=== PATIENT | female | born 1975 | race Caucasian/White ===

== ENCOUNTER 2019-12-23 11:48 | Emergency (ER) | payer SELFPAY ==
[2019-12-23 11:49] VITALS: BP 133/64; PULSE 80; RESP 16; TEMP 36.7; O2SAT 100; BMI 19.3
--- NOTE | 2019-12-23 11:52 | ED_ITS ---
Entered by Tari Salgado, acting as scribe for Marge Bear HPI - Chest Pain General: Chief Complaint: Chest Pain Stated Complaint: jaw pain Time Seen by Provider: 12/23/19 11:51 Source: patient Mode of arrival: ambulatory Limitations: no limitations History of Present Illness: HPI narrative: 44 yo Female presents to ED with complaint of jaw pain that radiates down into her chest. Pt states that her pain is sharp and she has nauseated. Pt's family states that the patient has been short of breath. Pt's family states that the patient had a stroke in October a nd was given TPA. Pt states that she woke up this way from a nap. Pt's family states that the patient fell asleep in the middle of a conversation. Pt woke up complaining of feeling like she was punched in the jaw. Pt's family states that the patient is taking astorvastatin and one of the side effects is jaw pain. Pt states that her vision is twitching. Pt's family states that the patient's last known normal was 10:45 am today. NIHSS=3 MD complaint: chest pain and other (jaw pain) Onset (ago): minute(s) Timing of current episode: constant and still present Prior episodes: Yes Onset: awoke with symptoms Pain location: other (jaw) Pain radiation: neck Pain scale (0-10): 9 Quality: sharp Relieving factors: nothing Exacerbating factors: nothing Associated symptoms: Reports dyspnea and nausea; Deny diaphoresis, fever(s), palpitations or syncope Treatment prior to arrival: none Review of Systems General: Reports: other (negative unless marked) Const: Denies: fever, chills, body aches, fatigue, malaise or diaphoresis Eyes: Denies: change in vision or blurry vision ENMT: Reports: other (jaw pain); Denies: throat pain, painful swallowing, hoarseness, ear pain, ear discharge, Change in hearing or nasal discharge Card: Reports: chest pain; Denies: palpitations, irregular heart rhythm, syncope, pre-syncope, shortness of breath on exertion or shortness of breath when lying down Resp: Reports: shortness of breath GI: Reports: nausea : Denies: flank pain, painful urination, urinary frequency, urinary urgency, decreased urine ouput, urinary incontinence or blood in urine Musc: Denies: neck pain, back pain, extremity pain, extremity swelling, joint pain, joint swelling, joint warmth or joint stiffness Skin/Breast: Denies: rash, skin tenderness or yellow skin Neuro: Denies: headache, numbness in extremities, weakness in extremities, changes in sensation, lack of coordination, difficulty walking, dizziness, vertigo or confusion Endo: Denies: excessive thirst, tired all the time, cold intolerance, excessive sweating, flushing or hot flashes Yvan/Lymph: Denies: easy bruising, easy bleeding, petechiae or enlarged lymph nodes All/Imm: Denies: hives, throat swelling, tongue swelling, facial swelling or acute wheezing PFSH ED PFSH: Statuses (acute, chronic, etc) shown below reflect problem list status as previously entered and may not be historically accurate Medical History Atrial fibrillation (Acute) CVA (cerebral vascular accident) (Acute) Migraine (Acute) Palpitation (Acute) Surgical History H/O: hysterectomy (Acute) History of appendectomy (Acute) History of hysterectomy (Acute) Hx laparoscopic cholecystectomy (Acute) Tubal ligation status (Acute) Tubal ligation status (Acute) Family History Grandmother Cancer Father Diabetes Stroke Mother Hypertension Stroke Other Dementia Hyperlipidemia Psychiatric illness Denies family history of CAD (coronary artery disease) Clotting disorder Chronic kidney disease (CKD) Anesthesia complication Bleeding disorder Family history of premature coronary artery disease Lung disease Social History Smoking and tobacco status: current every day smoker cigarettes Quit status (tobacco): considering quitting Second hand smoke exposure: No Smoking risk assessment/counseling performed?: No Alcohol intake: never Desire information about alcohol rehabilitation?: No Counseling given: No Desire information about substance/drug rehabilitation?: No Counseling given: No Adopted: No Caregiver/support person: No Lives independently: Yes Household members: family Housing: House Marital status: Single Number of children: 3 Number of grandchildren: 6 Highest education level completed: Some College, No Degree service: No Current occupational status: employed Current occupational exposures/hazards: No History of recent travel: No Current gender identity: Female Special jaziel needs: No Agree to transfusion: Yes Physical Exam Const: COMMON NORMALS: no apparent distress, oriented x3, no limitations, healthy appearing and well nourished EXAM LIMITATIONS: no altered mental status GENERAL APPEARANCE: cooperative, well kempt and well developed ORIENTATION/CONSCIOUSNESS: Yes awake HENMT: COMMON NORMALS: normocephalic, head/scalp atraumatic, hearing grossly normal bilaterally, external ears normal, EAC's normal, external nose normal and moist oral mucous membranes HEAD & SCALP: normal to inspection, normocephalic and atraumatic FACE & SINUS: normal facial exam and face symmetric NOSE: external nose normal and nares normal EXTERNAL EAR: Yes external ears normal EXTERNAL AUDITORY CANAL: EAC's normal MOUTH: oral and palatal mucosa normal and tongue normal Eye: COMMON NORMALS: PERRL, EOMs intact bilaterally, conjunctivae normal and no scleral icterus GENERAL EYE: normal appearance of both eyes and normal light reflex CONJUNCTIVA: Yes conjunctivae normal SCLERA: sclerae normal CORNEA: Yes corneas normal PUPIL: Yes PERRL DIRECT OPHTHALMOSCOPY: Yes normal light reflex Neck/C-Spine: COMMON NORMALS: full ROM, no lymphadenopathy, supple, no men ingeal signs and no JVD GENERAL: Yes normal visual inspection and Yes trachea midline CERVICAL SPINE: Yes cervical ROM normal Chest: COMMONS NORMALS: inspection of chest normal and palpation of chest normal Resp: COMMON NORMALS: normal respiratory effort, no retractions, no use of accessory muscles and clear to auscultation bilaterally EFFORT & INSPECTION: Yes able to speak in complete sentences AUSCULTATION: clear to auscultation bilaterally Cardio: COMMON NORMALS: no JVD, regular rate, regular rhythm, S1 normal heart sound, S2 normal heart sound, no gallops, no clicks, no murmurs, no rub and peripheral pulses 2+ throughout JUGULAR VENOUS DISTENTION: no JVD RATE: regular rate RHYTHM: regular rhythm HEART SOUNDS: S1 normal and S2 normal PERIPHERAL PULSES: pulses 2+ throughout, brachial pulses present, radial pulses present, ulnar pulses present, femoral pulses present, popliteal pulses present, posterior tibial pulses present, dorsalis pedis pulses present and other (Carotid pulses normal bilaterally.) GI: COMMON NORMALS: soft to palpation, non-tender, no hepatosplenomegaly and no masses INSPECTION: Yes normal to inspection PALPATION: Yes soft and Yes no hepatosplenomegaly : COMMON NORMALS: Yes no CVA tenderness BLADDER/KIDNEY EXAM: Yes no CVA tenderness Back/Pelvis: COMMON NORMALS: no CVA tenderness, thoracic and lumbar spine normal to inspection, no thoracic nor lumbar tenderness and thoraco-lumbar ROM normal Extremity: COMMON NORMALS: normal to inspection, full ROM, normal capillary refill, no joint enlargement, no clubbing, cyanosis or edema and no calf tenderness Neuro: COMMON NORMALS: oriented x3, CN's II-XII intact bilaterally, moves all extremities, no focal motor deficits and no sensory deficits noted MENINGEAL SIGNS: Yes no meningeal signs Psych: COMMON NORMALS: mental status grossly normal, thought process normal, cooperative, affect normal, speech normal and activity/motor behavior normal APPEARANCE: Yes well kempt SPEECH: Yes normal speech THOUGHT PROCESS: normal thought process Skin: COMMON NORMALS: no rashes or lesions noted, skin turgor normal, no jaundice, no petechiae and no mottling GENERAL SKIN EXAM: no rashes or lesions noted and turgor normal Course ED course: 1245 - The case was reviewed with Dr. Gonzalez, he does not believe this is an acute stroke. Please see his consult note. He states at this time the patient could be considered for EEG testing as there was a questionable syncopal episode at the beginning of this episode. He does not recommend a repeat MRI. I have discussed with the patient at this time the need for possible admission for EEG or cardiac rule out but she is refusing. After much discussion she does agree to allow me to ultrasound her neck to rule out carotid dissection as well as get a second EKG and troponin but she is refusing any further evaluation. On reexamination her neck and clavicle area she describes her pain are tender to touch. I see no skin rashes or lesions. She has pain with increased movement of her right arm. Vital Signs: Vital signs: Vital Signs Temperature 98.0 F 12/23/19 11:49 Pulse Rate 66 12/23/19 14:41 Respiratory Rate 18 12/23/19 14:41 Blood Pressure 114/58 12/23/19 14:41 Pulse Oximetry 98 12/23/19 14:41 MDM - Chest Pain MDM Narrative: Medical decision making narrative: Angi is a 44-year-old female who comes in with left-sided neck and jaw pain after awakening from a nap. Her last known well time was 1045. She complained of weakness in her arm and her leg. The patient had similar symptoms at the end of October,November 10 and was treated for a stroke. Per review of records that are available to me at this time is unclear whether this was truly a stroke or stroke mimic. I did discuss the case with the on-call neurologist for [facility] Dr. Gonzalez and he had records available to him that question whether this was a conversion disorder or a stroke mimic such as a migraine with hemiplegia. Ultimately the patient improved and was discharged from [facility] after she was transferred from here. This time the patient symptoms are gone except for only mild tenderness to the areas affected in her left neck and left clavicle. Ultrasound shows no sign of carotid dissection. I do not feel there to be an aortic dissection as the patient has a normal heart and mediastinum on chest x-ray, she has equal and strong pulses in her carotid arteries, brachial arteries, radial arteries, femoral arteries, popliteal arteries and dorsalis pedis/posterior tibial arteries. She does not describe her pain as ripping, tearing or migrating. Her pain is reproducible to palpation. The patient I do not believe this is a PE as she is low risk per Wells criteria and her d-dimer is negative. Negative d-dimer also supports this not being an aortic dissection. Patient has a heart score of 1. I have recommended that she stay for further testing of her heart but she refuses. Dr. Gonzalez had recommended staying for EEG monitoring but she does not want to do this either. The patient has been warned that the definitive cause for her pain is not been determined and by leaving she is at risk of or severe permanent disability but despite this she still refuses and wants to be discharged. I have informed her that the differential diagnosis of her symptoms is still long and further testing needs to be done but despite this concern and the possible consequences she still wants to leave and is requesting to be discharged. Lab Data: Labs: Lab Results 12/23/19 12/23/19 12/23/19 Range/Units 11:50 11:50 11:50 WBC 13.4 H (4.0-10.0) 10^3/ uL RBC 4.39 (4.1-5.3) 10^6/u L Hgb 13.8 (11.5-15.3) g/dL Hct 41.3 (37.0-47.0) % MCV 94.1 (81-99) fL MCH 31.4 (28.0-34.0) pg MCHC 33.4 (30.0-36.0) g/dL RDW 12.9 (12.1-15.1) % Plt Count 234 (130-400) 10^3/c mm MPV 9.6 (7.4-10.4) fL Neut % (Auto) 76.5 % Lymph % (Auto) 17.5 % [place] % (Auto) 4.6 % Eos % (Auto) 0.6 % Baso % (Auto) 0.4 % Neut # (Auto) 10.2 H (1.8-7.7) 10^3/u L Lymph # (Auto) 2.3 (0.8-4.8) 10^3/u L [place] # (Auto) 0.6 (0.2-0.9) 10^3/u L Eos # (Auto) 0.1 (0.0-0.8) 10^3/u L Baso # (Auto) 0.1 (0.0-0.1) 10^3/u L Nucleated RBC % (a uto) 0 % Nucleated RBCs # 0.0 /100WBC PT 13.80 H (10.5-13.3) SECO NDS INR 1.03 (0.8-1.2) APTT 33.4 (23.9-36.7) SECO NDS D-Dimer (0-0.59) ug/mIFE U Sodium (136-145) mmol/L Potassium (3.5-5.1) mmol/L Chloride (98-107) mmol/L Carbon Dioxide (22-29) mmol/L Anion Gap (5-19) BUN (6-20) mg/dL Creatinine (0.5-0.9) mg/dL GFR Calculation (90-130) mL/min Glucose (65-115) mg/dL POC Glucose (70-110) mg/dL Calcium (8.5-10.5) mg/dL Total Bilirubin (0.15-1.2) mg/dL AST (0-32) U/L ALT (0-33) U/L Alkaline Phosphata se (35-105) IU/L Troponin T Baselin e 6 (0-10) ng/mL Troponin T 120 Min [place] (0-10) ng/mL Delta Troponin T (0-10) ABS# Total Protein (6.6-8.7) g/dL Albumin (3.5-5.2) g/dL Globulin (1.3-4.6) g/dL HCG, Qual (Negative) Urine Color (Yellow) Urine Appearance (CLEAR) Urine pH (5-7) Ur Specific Gravit y (1.005-1.030) Urine Protein (Negative) Urine Glucose (UA) (Normal) Urine Ketones (Negative) Urine Occult Blood (Negative) Urine Nitrate (Negative) Urine Bilirubin (NEGATIVE) Urine Urobilinogen (Negative) mg/dL Ur Leukocyte Jesusita ase (Negative) Urine Opiates Scre en (Negative) ng/mL Ur Barbiturates Sc reen (Negative) ng/mL Ur Phencyclidine S crn (Negative) ng/mL Ur Amphetamines Sc reen (Negative) ng/mL U Benzodiazepines Scrn (Negative) ng/mL Urine Cocaine Scre en (Negative) ng/mL U Marijuana (THC) Screen (Negative) ng/mL Ethyl Alcohol (0-10) mg/dL 12/23/19 12/23/19 12/23/19 Range/Units 11:50 11:50 11:50 WBC (4.0-10.0) 10^3/ uL RBC (4.1-5.3) 10^6/u L Hgb (11.5-15.3) g/dL Hct (37.0-47.0) % MCV (81-99) fL MCH (28.0-34.0) pg MCHC (30.0-36.0) g/dL RDW (12.1-15.1) % Plt Count (130-400) 10^3/c mm MPV (7.4-10.4) fL Neut % (Auto) % Lymph % (Auto) % [place] % (Auto) % Eos % (Auto) % Baso % (Auto) % Neut # (Auto) (1.8-7.7) 10^3/u L Lymph # (Auto) (0.8-4.8) 10^3/u L [place] # (Auto) (0.2-0.9) 10^3/u L Eos # (Auto) (0.0-0.8) 10^3/u L Baso # (Auto) (0.0-0.1) 10^3/u L Nucleated RBC % (a uto) % Nucleated RBCs # /100WBC PT (10.5-13.3) SECO NDS INR (0.8-1.2) APTT (23.9-36.7) SECO NDS D-Dimer <= 0.27 (0-0.59) ug/mIFE U Sodium 137 (136-145) mmol/L Potassium 3.8 (3.5-5.1) mmol/L Chloride 104 (98-107) mmol/L Carbon Dioxide 20 L (22-29) mmol/L Anion Gap 16.8 (5-19) BUN 13 (6-20) mg/dL Creatinine 0.7 (0.5-0.9) mg/dL GFR Calculation 91.8 (90-130) mL/min Glucose 103 (65-115) mg/dL POC Glucose (70-110) mg/dL Calcium 10.0 (8.5-10.5) mg/dL Total Bilirubin 0.3 (0.15-1.2) mg/dL AST 9 (0-32) U/L ALT 17 (0-33) U/L Alkaline Phosphata se 65 (35-105) IU/L Troponin T Baselin e (0-10) ng/mL Troponin T 120 Min [place] (0-10) ng/mL Delta Troponin T (0-10) ABS# Total Protein 7.7 (6.6-8.7) g/dL Albumin 4.9 (3.5-5.2) g/dL Globulin 2.8 (1.3-4.6) g/dL HCG, Qual (Negative) Urine Color (Yellow) Urine Appearance (CLEAR) Urine pH (5-7) Ur Specific Gravit y (1.005-1.030) Urine Protein (Negative) Urine Glucose (UA) (Normal) Urine Ketones (Negative) Urine Occult Blood (Negative) Urine Nitrate (Negative) Urine Bilirubin (NEGATIVE) Urine Urobilinogen (Negative) mg/dL Ur Leukocyte Jesusita ase (Negative) Urine Opiates Scre en (Negative) ng/mL Ur Barbiturates Sc reen (Negative) ng/mL Ur Phencyclidine S crn (Negative) ng/mL Ur Amphetamines Sc reen (Negative) ng/mL U Benzodiazepines Scrn (Negative) ng/mL Urine Cocaine Scre en (Negative) ng/mL U Marijuana (THC) Screen (Negative) ng/mL Ethyl Alcohol < 10 (0-10) mg/dL 12/23/19 12/23/19 12/23/19 Range/Units 12:14 12:43 12:43 WBC (4.0-10.0) 10^3/ uL RBC (4.1-5.3) 10^6/u L Hgb (11.5-15.3) g/dL Hct (37.0-47.0) % MCV (81-99) fL MCH (28.0-34.0) pg MCHC (30.0-36.0) g/dL RDW (12.1-15.1) % Plt Count (130-400) 10^3/c mm MPV (7.4-10.4) fL Neut % (Auto) % Lymph % (Auto) % [place] % (Auto) % Eos % (Auto) % Baso % (Auto) % Neut # (Auto) (1.8-7.7) 10^3/u L Lymph # (Auto) (0.8-4.8) 10^3/u L [place] # (Auto) (0.2-0.9) 10^3/u L Eos # (Auto) (0.0-0.8) 10^3/u L Baso # (Auto) (0.0-0.1) 10^3/u L Nucleated RBC % (a uto) % Nucleated RBCs # /100WBC PT (10.5-13.3) SECO NDS INR (0.8-1.2) APTT (23.9-36.7) SECO NDS D-Dimer (0-0.59) ug/mIFE U Sodium (136-145) mmol/L Potassium (3.5-5.1) mmol/L Chloride (98-107) mmol/L Carbon Dioxide (22-29) mmol/L Anion Gap (5-19) BUN (6-20) mg/dL Creatinine (0.5-0.9) mg/dL GFR Calculation (90-130) mL/min Glucose (65-115) mg/dL POC Glucose 86 (70-110) mg/dL Calcium (8.5-10.5) mg/dL Total Bilirubin (0.15-1.2) mg/dL AST (0-32) U/L ALT (0-33) U/L Alkaline Phosphata se (35-105) IU/L Troponin T Baselin e (0-10) ng/mL Troponin T 120 Min [place] (0-10) ng/mL Delta Troponin T (0-10) ABS# Total Protein (6.6-8.7) g/dL Albumin (3.5-5.2) g/dL Globulin (1.3-4.6) g/dL HCG, Qual (Negative) Urine Color Yellow (Yellow) Urine Appearance Clear (CLEAR) Urine pH 7 (5-7) Ur Specific Gravit y 1.000 L (1.005-1.030) Urine Protein Neg (Negative) Urine Glucose (UA) Norm (Normal) Urine Ketones Negative (Negative) Urine Occult Blood Neg (Negative) Urine Nitrate Negative (Negative) Urine Bilirubin Neg (NEGATIVE) Urine Urobilinogen Norm (Negative) mg/dL Ur Leukocyte Jesusita ase Negative (Negative) Urine Opiates Scre en Negative (Negative) ng/mL Ur Barbiturates Sc reen Negative (Negative) ng/mL Ur Phencyclidine S crn Negative (Negative) ng/mL Ur Amphetamines Sc reen Negative (Negative) ng/mL U Benzodiazepines Scrn Negative (Negative) ng/mL Urine Cocaine Scre en Negative (Negative) ng/mL U Marijuana (THC) Screen Positive H (Negative) ng/mL Ethyl Alcohol (0-10) mg/dL 12/23/19 12/23/19 Range/Units 12:43 13:43 WBC (4.0-10.0) 10^3/ uL RBC (4.1-5.3) 10^6/u L Hgb (11.5-15.3) g/dL Hct (37.0-47.0) % MCV (81-99) fL MCH (28.0-34.0) pg MCHC (30.0-36.0) g/dL RDW (12.1-15.1) % Plt Count (130-400) 10^3/c mm MPV (7.4-10.4) fL Neut % (Auto) % Lymph % (Auto) % [place] % (Auto) % Eos % (Auto) % Baso % (Auto) % Neut # (Auto) (1.8-7.7) 10^3/u L Lymph # (Auto) (0.8-4.8) 10^3/u L [place] # (Auto) (0.2-0.9) 10^3/u L Eos # (Auto) (0.0-0.8) 10^3/u L Baso # (Auto) (0.0-0.1) 10^3/u L Nucleated RBC % (a uto) % Nucleated RBCs # /100WBC PT (10.5-13.3) SECO NDS INR (0.8-1.2) APTT (23.9-36.7) SECO NDS D-Dimer (0-0.59) ug/mIFE U Sodium (136-145) mmol/L Potassium (3.5-5.1) mmol/L Chloride (98-107) mmol/L Carbon Dioxide (22-29) mmol/L Anion Gap (5-19) BUN (6-20) mg/dL Creatinine (0.5-0.9) mg/dL GFR Calculation (90-130) mL/min Glucose (65-115) mg/dL POC Glucose (70-110) mg/dL Calcium (8.5-10.5) mg/dL Total Bilirubin (0.15-1.2) mg/dL AST (0-32) U/L ALT (0-33) U/L Alkaline Phosphata se (35-105) IU/L Troponin T Baselin e (0-10) ng/mL Troponin T 120 Min [place] 6.00 (0-10) ng/mL Delta Troponin T 0 (0-10) ABS# Total Protein (6.6-8.7) g/dL Albumin (3.5-5.2) g/dL Globulin (1.3-4.6) g/dL HCG, Qual Negative (Negative) Urine Color (Yellow) Urine Appearance (CLEAR) Urine pH (5-7) Ur Specific Gravit y (1.005-1.030) Urine Protein (Negative) Urine Glucose (UA) (Normal) Urine Ketones (Negative) Urine Occult Blood (Negative) Urine Nitrate (Negative) Urine Bilirubin (NEGATIVE) Urine Urobilinogen (Negative) mg/dL Ur Leukocyte Jesusita ase (Negative) Urine Opiates Scre en (Negative) ng/mL Ur Barbiturates Sc reen (Negative) ng/mL Ur Phencyclidine S crn (Negative) ng/mL Ur Amphetamines Sc reen (Negative) ng/mL U Benzodiazepines Scrn (Negative) ng/mL Urine Cocaine Scre en (Negative) ng/mL U Marijuana (THC) Screen (Negative) ng/mL Ethyl Alcohol (0-10) mg/dL Imaging Data^: CT Head: Radiologist's impression: [place] [address] CT Scan Report Signed Patient: Pawan Maxwell #: [id number] : 1975Acct#:[id number] Age/Sex: 44 / FADM Date: 12/23/19 Loc: ERRoom/Bed: Attending Dr: Ordering Provider/Ordering MD: Marge Baer DO Date of Service: 12/23/19 Procedure(s): CT head wo con* [id number] Accession Number(s): [id number] Report Number: [id number] WS: [id number] CT HEAD HISTORY: 44 years old Female with left leg weakness. Concern for stroke. COMPARISON: CT head without contrast 11/10/2019 TECHNIQUE: 2.[address] images of the head With 2-D reformats. DLP: 822.[address] scans at [facility] use at least one of these dose optimization techniques: automated exposure control; mA and/or kV adjustment per patient size (includes targeted exams where dose is matched to clinical indication); or iterative reconstruction. FINDINGS: No intracranial hemorrhage, midline shift, or other mass effect. Brain parenchymal attenuation, lim-white matter differentiation, ventricular configuration, and basilar cisterns are unremarkable. No intra-axial or intraventricular attenuation abnormality. Clear mastoid air cells and paranasal sinuses. No arterial calcifications. No hyperattenuation within the major intracranial arterial and venous structures to suggest acute thrombus. Globes and orbital soft tissues unremarkable. Nasopharyngeal soft tissues unremarkable. Calvarium intact. Scalp and remaining extra cranial spaces and soft tissues unremarkable. CT/CT head wo con* [id number] IMPRESSION: No intracranial hemorrhage or mass effect. No significant change from 11/10/2019. Dictated By:Chava Perera MD Signed By:Chava Perera MDSigned Date/Time:12/23/19 1224 DD/ 1215 US Vascular: Radiologist's impression: [employer] interpretation, ultrasound bilateral carotid Dopplers -no advanced dissection. No acute abnormalities. Please see full formal report. [address] [address] Ultrasound Report Signed Patient: Angi MaxwellUnit #: [id number] : 1975Acct#:[id number] Age/Sex: 44 / FADM Date: 12/23/19 [facility] Attending Dr: Ordering Provider/Ordering MD: Marge Bear DO Date of Service: 12/23/19 Procedure(s): CV carotid duplex BI* [id number] Accession Number(s): [id number] Report Number: [id number] Angi Maxwell Age: 44 Gender: F : 1975 Exam Date: 12/23/2019 13:34 Ordering Phys: Marge Bear DO Technologist: Kristopher Tabares [place]am [place] [facility] [place]ication: LT SIDE NECK PAIN ? DISCECTION Risk Factors: Smoker Previous Vascular Surgery: Right Brachial BP: / Left Brachial BP: / Right Left Velocity (cm/s) Spectral Plaque Velocity (cm/s) Spectral Plaque Syst/Diast Broadening Syst/Diast Broadening 86.00/ 16.50 Prox CCA 118.00/ 17.60 70.60/ 17.60 Mid CCA 94.80 / 23.20 78.30/ 20.90 Distal CCA 79.40 / 13.20 94.80/ 18.70 Prox ICA 109.20/ 13.20 83.80/ 24.30 Mid ICA 102.50/ 18.70 103.60/34.20 Distal ICA 80.50 / 19.80 104.70 ECA 94.80 1.21 ICA/CCA 0.93 Antegrade Vertebral Antegrade 71.70/ 19.80 cm/s 71.70/ 7.70 cm/s Tri Subclavian Tri 88.20 143.3 0 FINDINGS Bilateral cervical carotid and vertebral arteries are patent with antegrade flow. No apprecialbe cervical carotid artery atheromatous plaque. No significant ICA velocity or ICA/CCA ratios. CONCLUSIONS 1, No evidence of cervical ICA hemodynamically significant stenosis. 2. No significant atheromatous plaque Ky Perera MD (Electronically Signed) Final Date: 23 December 2019 14:36 S CXR: My impression: No acute cardiopulmonary findings, normal heart and mediastinum. EKG Data^: EKG 1: Attestation: I personally reviewed and interpreted this EKG as follows: EKG interpretation date: 12/23/19 EKG interpretation time: 11:49 Interpretation: Normal sinus rhythm at 72 beats a minute, normal axis, no blocks, normal QTC, nonspecific ST-T wave changes. EKG 2: Attestation: I personally reviewed and interpreted this EKG as follows: EKG interpretation date: 12/23/19 EKG interpretation time: 14:24 Interpretation: Normal sinus rhythm at 56 beats a minute, sinus arrhythmia, normal intervals, no blocks, normal axis, no acute ST-T wave changes. Critical Care Time Critical Care Time: Critical Care Time: Yes Total Critical Care Time: 30 Attestation: Critical care time consisted of completing stroke protocol, evaluating labs, reviewing CT myself as well as reviewing radiology findings. Critical care time also consisted of reviewing old charts, consultation and discussion of the case with the stroke neurologist Dr. Gonzalez as well as multiple re-evaluations of the patient. Discharge Plan Discharge Patient Disposition: Home, Self-Care Clinical Impression: Chest pain Qualifiers: Chest pain type: unspecified Qualified Code(s): R07.9 - Chest pain, unspecified Condition: Stable Prescriptions: No Action aspirin 325 mg tablet 325 mg PO DAILY Qty: 90 RF: 4 hydroxyzine HCl 25 mg tablet 25 mg PO BID PRN (Reason: itching) Qty: 45 RF: 0 verapamil 120 mg capsule,ext rel. pellets 24 hr 120 mg PO DAILY 30 Days Qty: 30 RF: 6 atorvastatin 20 mg Tablet 20 mg PO DAILY RF: 0 Discharge Orders: Discharge Order (Routine); Ordered 12/23/19 Ordered By: Marge Bear Referrals: Jenny Bond, PRODUCTION SOUND MIXER [Primary Care Provider] - 1-3 days Miladys Gonzalez MD [Physician] - 1-3 days Discharge Diet: Advance as tolerated Discharge Activity: Increase activity as tolerated Patient Instructions: Chest Pain (ED) Activity Restrictions/Additional Instructions: You're leaving AGAINST MEDICAL ADVICE and are at risk for or severe permanent disability by doing so. You are more than welcome to return at any time for recheck and for further evaluation and care suture change you change your mind. Be certain to follow-up with your primary care provider and with Dr. Pierre as soon as possible. If you change your mind you are more than welcome to return here to the ER at any time for recheck. Stand Alone Forms: Against Medical Advice Discharge Date/Time: 12/23/19 14:43 Coding Level of Care Code ED Candy Butcher for Chg Fwd Exam Problem Focused The documentation recorded by the Damian shanks Carmen, accurately reflects the service I personally performed and the decisions made by me, Marge Bear
--- NOTE | 2019-12-23 11:57 | ECG_ITS ---
Measurements Intervals [place] Rate: 72 P: 20 WI: 153 QRS: 33 QRSD: 81 T: 57 QT: 365 QTc: 401 SINUS RHYTHM INDETERMINATE AXIS POSSIBLE RIGHT VENTRICULAR CONDUCTION DELAY [RSR (QR) IN V1/V2] WARNING: DATA QUALITY MAY AFFECT INTERPRETATION Compared to ECG 11/10/2019 17:40:39 Indeterminate axis now present Myocardial infarct finding no longer present Electronically Signed On 12-23-2019 22:23:36 V BELT MOLD ASSEMBLER AND CURER by Miladys Gonzalez M.D. [id number]
--- NOTE | 2019-12-23 12:06 | CT_ITS ---
WS: [id number] CT HEAD HISTORY: 44 years old Female with left leg weakness. Concern for stroke. COMPARISON: CT head without contrast 11/10/2019 TECHNIQUE: 2.[address] images of the head With 2-D reformats. DLP: 822.[address] scans at [facility] use at least one of these dose optimization techniques: automat ed exposure control; mA and/or kV adjustment per patient size (includes targeted exams where dose is matched to clinical indication); or iterative reconstruction. FINDINGS: No intracranial hemorrhage, midline shift, or other mass effect. Brain parenchymal attenuation, lim- white matter differentiation, ventricular configuration, and basilar cisterns are unremarkable. No in tra-axial or intraventricular attenuation abnormality. Clear mastoid air cells and paranasal sinuses. No arterial calcifications. No hyperattenuation within the major intracranial arterial and venous st ructures to suggest acute thrombus. Globes and orbital soft tissues unremarkable. Nasopharyngeal soft tissues unremarkable. Calvarium intact. Scalp and remaining extra cranial spaces and soft tissues un remarkable. CT/CT head wo con* [id number] IMPRESSION: No intracranial hemorrhage or mass effect. No significant change from 9.
[2019-12-23 12:16] LABS: Glucose Point of Care 86 mg/dL (70-110)
[2019-12-23 12:17] LABS: Basophils # 0.1 10^3/uL (0.0-0.1); Basophils % 0.4 %; Eosinophils # 0.1 10^3/uL (0.0-0.8); Eosinophils % 0.6 %; Hematocrit 41.3 % (37.0-47.0); Hemoglobin 13.8 g/dL (11.5-15.3); Lymphocytes # 2.3 10^3/uL (0.8-4.8); Lymphocytes % 17.5 %; Mean Corpuscular HGB Conc 33.4 g/dL (30.0-36.0); Mean Corpuscular Hemoglobin 31.4 pg (28.0-34.0); Mean Corpuscular Volume 94.1 fL (81-99); Mean Platelet Volume 9.6 fL (7.4-10.4); Monocytes # 0.6 10^3/uL (0.2-0.9); Monocytes % 4.6 %; Neutrophils # 10.2 10^3/uL (1.8-7.7); Neutrophils % 76.5 %; Nucleated Red Blood Cells % 0 %; Platelet Count 234 10^3/cmm (130-400); Red Blood Count 4.39 10^6/uL (4.1-5.3); Red Cell Distribution Width 12.9 % (12.1-15.1); White Blood Count 13.4 10^3/uL (4.0-10.0)
[2019-12-23 12:22] LABS: INR 1.03 (0.8-1.2)
[2019-12-23 12:23] LABS: Partial Thromboplastin Time 33.4 SECONDS (23.9-36.7)
[2019-12-23 12:31] LABS: Alanine Aminotransferase 17 U/L (0-33); Albumin Level 4.9 g/dL (3.5-5.2); Alkaline Phosphatase 65 IU/L (35-105); Anion Gap 16.8 (5-19); Aspartate Amino Transferase 9 U/L (0-32); Blood Urea Nitrogen 13 mg/dL (6-20); Carbon Dioxide 20 mmol/L (22-29); Chloride 104 mmol/L (98-107); Globulin 2.8 g/dL (1.3-4.6); Glomerular Filtration Rate 91.8 mL/min (90-130); Glucose 103 mg/dL (65-115); Potassium 3.8 mmol/L (3.5-5.1); Sodium 137 mmol/L (136-145); Total Bilirubin 0.3 mg/dL (0.15-1.2); Total Protein 7.7 g/dL (6.6-8.7)
[2019-12-23 12:32] LABS: Troponin(5th) Baseline 6 ng/mL (0-10)
--- NOTE | 2019-12-23 12:48 | USCV_ITS ---
Angi Maxwell Age: 44 Gender: F : 1975 Exam Date: 12/23/2019 13:34 Ordering Phys: Marge Bear DO Technologist: Kristopher Tabares Exam Location: [facility] Indication: LT SIDE NECK PAIN ? DISCECTION Risk Factors: Smoker Previous Vascular Surgery: Right Brachial BP: / Left Brachial BP: / Right Left Velocity (cm/s) Spectral Plaque Velocity (cm/s) Spectral Plaque Syst/Diast Broadening Syst/Diast Broadening 86.00/ 16.50 Prox CCA 118.00/ 17.60 70.60/ 17.60 Mid CCA 94.80 / 23.20 78.30/ 20.90 Distal CCA 79.40 / 13.20 94.80/ 18.70 Prox ICA 109.20/ 13.20 83.80/ 24.30 Mid ICA 102.50/ 18.70 103.60/34.20 Distal ICA 80.50 / 19.80 104.70 ECA 94.80 1.21 ICA/CCA 0.93 Antegrade Vertebral Antegrade 71.70/ 19.80 cm/s 71.70/ 7.70 cm/s Tri Subclavian Tri 88.20 143.3 0 FINDINGS Bilateral cervical carotid and vertebral arteries are patent with antegrade flow. No apprecialbe cervical carotid artery atheromatous plaque. No significant ICA velocity or ICA/CCA ratios. CONCLUSIONS 1, No evidence of cervical ICA hemodynamically significant stenosis. 2. No significant atheromatous plaque Ky Perera MD (Electronically Signed) Final Date: 23 December 2019 14:36 S
[2019-12-23 12:54] LABS: Add Urine Microscopic? NO
[2019-12-23 12:58] LABS: Bilirubin Urine Neg (NEGATIVE); Blood Urine Neg (Negative); Glucose Urine UA Norm (Normal); Ketones Urine Negative (Negative); Leukocyte Esterase Urine Negative (Negative); Nitrate Urine Negative (Negative); Protein Urine Neg (Negative); Urine Appearance Clear (CLEAR); Urine Color Yellow (Yellow); Urobilinogen Urine Norm (Negative); pH Urine 7 (5-7)
[2019-12-23 13:06] LABS: D Dimer <= 0.27 ug/mIFEU (0-0.59)
[2019-12-23 13:15] VITALS: BP 106/51; PULSE 85; RESP 17; O2SAT 97
[2019-12-23 13:17] LABS: Amphetamines Screen Urine Negative (Negative); Barbiturates Screen Urine Negative (Negative); Benzodiazepines Screen Urine Negative (Negative); Cocaine Screen Urine Negative (Negative); Opiate Screen Urine Negative (Negative); PCP Screen Urine Negative (Negative); THC Screen Urine Positive (Negative)
[2019-12-23 13:34] LABS: Alcohol Level < 10 mg/dL (0-10)
[2019-12-23 13:36] LABS: HCG Qualitative Urine. Negative (Negative)
[2019-12-23 13:43] VITALS: RESP 17; O2SAT 98
[2019-12-23] MEDS: morphine 4 mg/mL SDV 1 mL IVP (13:43)
[2019-12-23] MEDS: ondansetron 2 mg/ML SDV 2 mL 4 MG IVP (13:43)
--- NOTE | 2019-12-23 13:57 | ECG_ITS ---
Measurements Intervals [place] Rate: 56 P: 28 SD: 155 QRS: 47 QRSD: 87 T: 44 QT: 410 QTc: 398 SINUS BRADYCARDIA WITH MARKED SINUS ARRHYTHMIA INDETERMINATE AXIS POSSIBLE RIGHT VENTRICULAR CONDUCTION DELAY [RSR (QR) IN V1/V2] Compared to ECG 11/10/2019 17:40:39 Indeterminate axis now present Sinus rhythm no longer present Myocardial infarct finding no longer present Electronically Signed On 12-23-2019 22:25:44 WINDOW DRESSER by Miladys Gonzalez M.D. [id number]
[2019-12-23 14:16] LABS: Troponin 5 2HR Delta 0 ABS# (0-10)
--- NOTE | 2019-12-23 14:34 | XR_ITS ---
WS: [id number] ONE VIEW CHEST HISTORY: 44 years old Female with cough AP upright chest comparison 11/10/2019 FINDINGS: Interval peripheral opacity in the right upper lobe. No pneumothorax, pleural effusion, or other par enchymal opacity. Heart size and pulmonary vascular markings unremarkable. No subdiaphragmatic free a ir. No fracture seen. XR/XR chest 1V portable [id number] IMPRESSION: Interval right upper lobe peripheral focal opacity may represent pneumonia, inc luding atypical pneumonia, such as tuberculosis. Clinical correlation needed. R ecommend short-term follow-up PA and lateral chest in 4-6 weeks, or sooner if c linically indicated.
[2019-12-23 14:41] VITALS: BP 114/58; PULSE 66; RESP 18; O2SAT 98
--- NOTE | 2019-12-25 13:44 | DCPLANNER ---
renewable energy division manager had message to schedule a follow up appointment for patient with [facility]. renewable energy division manager called [facility], spoke with Miguelina, a follow up appointment was scheduled for Tuesday, December 26, 2019 1:00 with Tanja Dominguez. Clinic will call patient with appointment information.
--- NOTE | 2020-01-04 15:18 | DCPLANNER ---
Patient did attend appointment scheduled for 12.26.19 with [facility].
== END 2019-12-23 14:43 | disposition home or self-care (01) ==
PROVIDERS: Emergency Provider Emergency Medicine; Family Provider Nurse Practitioner Family; PCP Nurse Practitioner Family
DX: R07.9 Chest pain, unspecified (principal); Z79.82 Long term (current) use of aspirin; F17.210 Nicotine dependence, cigarettes, uncomplicated; I48.91 Unspecified atrial fibrillation; Z86.73 Personal history of transient ischemic attack (TIA), and cerebral infarction without residual deficits
CPT/HCPCS: 36415; 36416; 70450; 71045; 80053; 80307; 81003; 81025; 82962; 84484; 85025; 85378; 85610; 85730; 93005; 93880; 96374; 96375; 99283; 99285; J2270; J2405

== ENCOUNTER 2020-04-11 11:52 | Emergency (ER) | payer SELFPAY ==
[2020-04-11 11:59] VITALS: PULSE 101; RESP 20; O2SAT 100; BMI 19.5
--- NOTE | 2020-04-11 12:01 | CT_ITS ---
WS: [id number] CT HEAD NONCONTRAST HISTORY: Symptoms of Acute Stroke TECHNIQUE: Contiguous axial imaging performed through the brain in 2.5 mm imaging. Bone and soft tiss ue windows. Sagittal and coronal reformats reviewed. All CT scans at [facility] use at ast one of these dose optimization techniques: automated exposure control; mA and/or kV adjustment pe r patient size (includes targeted exams where dose is matched to clinical indication); or iterative r econstruction. DLP: 756.41 mGy.cm COMPARISON: 12/23/2019 No acute intracranial hemorrhage, midline shift or mass effect. No atrophy or prior infarcts or herniation. Ventricles: Normal size with no hydrocephalus. No inferior displacement of the cerebellar tonsils. No significant atherosclerosis of the intracrania l carotid arteries. Paranasal sinuses: As visualized are clear. Mastoid air cells: Well pneumatized. Calvarium and scalp: Skull is intact with no soft tissue edema or swelling. Notified Rosemary Devlin MD at 04/11/2020 12:[address]/CT head wo con* [id number] IMPRESSION: 1. Negative noncontrast CT head. 2. No intracranial hemorrhage. Stable since 12/23/2019.
--- NOTE | 2020-04-11 12:01 | ECG_ITS ---
Measurements Intervals [place] Rate: 64 P: 29 RI: 180 QRS: 66 QRSD: 81 T: 62 QT: 370 QTc: 383 SINUS RHYTHM WITH MARKED SINUS ARRHYTHMIA POSSIBLE RIGHT VENTRICULAR CONDUCTION DELAY [RSR (QR) IN V1/V2] SEPTAL MYOCARDIAL INFARCTION , OF INDETERMINATE AGE [40+ ms Q WAVE IN V1/V2] Compared to ECG 12/23/2019 14:24:33 Myocardial infarct finding now present Sinus bradycardia no longer present Indeterminate axis no longer present Electronically Signed On 04-11-2020 18:55:23 CDT by Miladys Gonzalez M.D. [id number]
--- NOTE | 2020-04-11 12:07 | W.ED.NEUROSD ---
HPI - Neuro Symptoms/Deficit General: Chief Complaint: Neuro Symptoms/Deficit Stated Complaint: STATES SHE IS HAVING A STROKE Time Seen by Provider: 04/11/20 11:58 Source: patient Mode of arrival: ambulatory Limitations: altered mental status History of Present Illness: HPI Narrative: 44-year-old female that seen a failure states 15 minutes ago lost consciousness and was unable to move or talk. Patient had a history of a CVA that required TPA in October. Patient currently will follow some commands and squeeze my finger with her right hand. She is not able to speak to me. She shakes her head no to chest pain or headache. Onset (ago): minute(s) Location: speech History of same: Yes Severity: moderate Relieving factors: none Review of Systems General: Reports: ROS unobtainable due to medical condition and ROS unobtainable due to mental status PFS ED PFSH: Medical History (Updated 04/11/20 @ 13:32 by Rosemary Devlin MD) Anxiety Atrial fibrillation Chest pain CVA (cerebral vascular accident) Establishing care with new doctor, encounter for Migraine Palpitation Surgical History H/O: hysterectomy History of appendectomy History of hysterectomy Hx laparoscopic cholecystectomy Tubal ligation status Tubal ligation status Family History Grandmother Cancer Father Diabetes Stroke Mother Hypertension Stroke Other Dementia Hyperlipidemia Psychiatric illness Denies family history of CAD (coronary artery disease) Clotting disorder Chronic kidney disease (CKD) Anesthesia complication Bleeding disorder Family history of premature coronary artery disease Lung disease Social History Smoking and tobacco status: unknown if ever smoked Quit status (tobacco): considering quitting Second hand smoke exposure: No Smoking risk assessment/counseling performed?: No Alcohol intake: never Desire information about alcohol rehabilitation?: No Counseling given: No Desire information about substance/drug rehabilitation?: No Counseling given: No Adopted: No Caregiver/support person: No Lives independently: Yes Household members: family Housing: House Marital status: Single Number of children: 3 Number of grandchildren: 6 Highest education level completed: Some College, No Degree service: No Current occupational status: employed Current occupational exposures/hazards: No History of recent travel: No Current gender identity: Female Special jaziel needs: No Agree to transfusion: Yes Physical Exam Const: COMMON NORMALS: alert; negative for patient oriented x3 EXAM LIMITATIONS: altered mental status HENMT: COMMON NORMALS: normocephalic and atraumatic HEAD & SCALP: normocephalic and atraumatic Eye: COMMON NORMALS: Equal, round and reactive pupils present and EOMs intact bilaterally PUPIL: Yes Equal, round and reactive pupils present Neck/C-Spine: COMMON NORMALS: full ROM and supple Chest: COMMONS NORMALS: normal inspection of the chest and normal palpation of entire chest wall Resp: COMMON NORMALS: normal respiratory effort, No retractions, No use of accessory muscles and clear to auscultation bilaterally AUSCULTATION: clear to auscultation bilaterally Cardio: COMMON NORMALS: regular rate, regular rhythm and No murmurs present (Cardio) RATE: regular rate RHYTHM: regular rhythm GI: COMMON NORMALS: Normal to inspection, nondistended, normoactive bowel sounds present, Soft to palpation, non-tender and no masses PALPATION: Yes Soft to palpation Extremity: COMMON NORMALS: normal to inspection and full ROM Neuro: COMMON NORMALS: negative for patient oriented x3, negative for moves all extremities and negative for no focal motor deficits SENSORIUM/ORIENTATION: Yes alert Psych: COMMON NORMALS: negative for mental status grossly normal Skin: COMMON NORMALS: no rashes or lesions noted and no wounds GENERAL SKIN EXAM: no rashes or lesions noted Course Vital Signs: Vital signs: Vital Signs Pulse Rate 101 H 04/11/20 11:59 Respiratory Rate 20 H 04/11/20 11:59 Pulse Oximetry 100 04/11/20 11:59 MDM - Neuro Symptoms/Deficit MDM Narrative: Medical decision making narrative: 1233 patient evaluated by neurologist and patient symptoms are resolving and she is not a TPA candidate. She has no focal deficits that she has bilateral weakness. I went and spoke to her and she is able to answer all questions down and speak. She is regaining strength. She now complains of a headache at this time. Patient presents with altered mental status that is resolved. She is requesting discharge I feel she is stable for discharge. She is to follow-up with neurology in [place] as scheduled. CT here showed no signs of acute stroke and lab work is normal. She is to return if worsening. Lab Data: Labs: Lab Results 04/11/20 04/11/20 04/11/20 Range/Units 12:12 12:12 12:12 WBC 11.7 H (4.0-10.0) 10^3/ uL RBC 4.56 (4.1-5.3) 10^6/u L Hgb 14.5 (11.5-15.3) g/dL Hct 44.2 (37.0-47.0) % MCV 96.9 (81-99) fL MCH 31.8 (28.0-34.0) pg MCHC 32.8 (30.0-36.0) g/dL RDW 13.3 (12.1-15.1) % Plt Count 230 (130-400) 10^3/c mm MPV 9.4 (7.4-10.4) fL Neut % (Auto) 68.1 % Lymph % (Auto) 25.1 % [place] % (Auto) 5.1 % Eos % (Auto) 0.9 % Baso % (Auto) 0.5 % Neut # (Auto) 8.0 H (1.8-7.7) 10^3/u L Lymph # (Auto) 2.9 (0.8-4.8) 10^3/u L [place] # (Auto) 0.6 (0.2-0.9) 10^3/u L Eos # (Auto) 0.1 (0.0-0.8) 10^3/u L Baso # (Auto) 0.1 (0.0-0.1) 10^3/u L Nucleated RBC % (a uto) 0 % Nucleated RBCs # 0.0 /100WBC PT 13.50 H (10.5-13.3) SECO NDS INR 1.00 (0.8-1.2) APTT 30.3 (23.9-36.7) SECO NDS Sodium 137 (136-145) mmol/L Potassium 3.8 (3.5-5.1) mmol/L Chloride 105 (98-107) mmol/L Carbon Dioxide 17 L (22-29) mmol/L Anion Gap 18.8 (5-19) BUN 7 (6-20) mg/dL Creatinine 0.7 (0.5-0.9) mg/dL GFR Calculation 91.8 (90-130) mL/min Glucose 77 (65-115) mg/dL Calculated Osmolal ity 279 L (285-295) mOsm/k g Calcium 10.5 (8.5-10.5) mg/dL Total Bilirubin 0.4 (0.15-1.2) mg/dL AST 9 (0-32) U/L ALT 16 (0-33) U/L Alkaline Phosphata se 55 (35-105) IU/L Total Protein 7.3 (6.6-8.7) g/dL Albumin 4.8 (3.5-5.2) g/dL Globulin 2.5 (1.3-4.6) g/dL Imaging Data^: CT Head: Radiologist's impression: [address] [address] [address] Scan Report Signed Patient: Angi Maxwell Unit #: [id number] : 1975 Age/Sex: 44 / F ADM Date: 04/11/20 Loc: ER Room/Bed: Attending Dr: Ordering Provider/Ordering MD: Rosemary Devlin MD Date of Service: 04/11/20 Procedure(s): CT head wo con* [id number] Accession Number(s): [id number] Report Number: [id number] WS: [id number] CT HEAD NONCONTRAST HISTORY: Symptoms of Acute Stroke TECHNIQUE: Contiguous axial imaging performed through the brain in 2.5 mm imaging. Bone and soft tissue windows. Sagittal and coronal reformats reviewed. All CT scans at [facility] use at least one of these dose optimization techniques: automated exposure control; mA and/or kV adjustment per patient size (includes targeted exams where dose is matched to clinical indication); or iterative reconstruction. DLP: 756.41 mGy.cm COMPARISON: 12/23/2019 No acute intracranial hemorrhage, midline shift or mass effect. No atrophy or prior infarcts or herniation. Ventricles: Normal size with no hydrocephalus. No inferior displacement of the cerebellar tonsils. No significant atherosclerosis of the intracranial carotid arteries. Paranasal sinuses: As visualized are clear. Mastoid air cells: Well pneumatized. Calvarium and scalp: Skull is intact with no soft tissue edema or swelling. Notified Rosemary Devlin MD at 04/11/2020 12:[address]/CT head wo con* [id number] IMPRESSION: 1. Negative noncontrast CT head. 2. No intracranial hemorrhage. Stable since 12/23/2019. Discharge Plan Discharge Patient Disposition: Home, Self-Care Clinical Impression: Altered mental status Qualifiers: Altered mental status type: unspecified Qualified Code(s): R41.82 - Altered mental status, unspecified Condition: Stable Prescriptions: No Action multivitamin Tablet 1 tab PO DAILY RF: 0 vitamin B complex Tablet 1 tab PO DAILY RF: 0 hydroxyzine HCl 25 mg tablet 25 mg PO BID PRN (Reason: itching) Qty: 45 RF: 0 verapamil 120 mg capsule,ext rel. pellets 24 hr 120 mg PO DAILY 30 Days Qty: 30 RF: 6 aspirin [Adult Low Dose Aspirin] 81 mg tablet,delayed release (DR/EC) 81 mg PO DAILY 30 Days Qty: 30 RF: 12 clopidogrel [Plavix] 75 mg tablet 75 mg PO DAILY 30 Days Qty: 30 RF: 12 atorvastatin 20 mg Tablet 20 mg PO DAILY RF: 0 Discharge Orders: Discharge Order (Routine); Ordered 04/11/20 Ordered By: Rosemary Devlin Referrals: SHANICE Bond FNP [Family Provider] - 1-3 days Brandy Beal FNP [Primary Care Provider] - Discharge Diet: Advance as tolerated Discharge Activity: Resume usual activity Patient Instructions: Altered Mental Status (ED) Coding Level of Care Code ED Central Office Maintainer for Trueg Fwd Exam Comprehensive
[2020-04-11 12:19] LABS: Basophils # 0.1 10^3/uL (0.0-0.1); Basophils % 0.5 %; Eosinophils # 0.1 10^3/uL (0.0-0.8); Eosinophils % 0.9 %; Hematocrit 44.2 % (37.0-47.0); Hemoglobin 14.5 g/dL (11.5-15.3); Lymphocytes # 2.9 10^3/uL (0.8-4.8); Lymphocytes % 25.1 %; Mean Corpuscular HGB Conc 32.8 g/dL (30.0-36.0); Mean Corpuscular Hemoglobin 31.8 pg (28.0-34.0); Mean Corpuscular Volume 96.9 fL (81-99); Mean Platelet Volume 9.4 fL (7.4-10.4); Monocytes # 0.6 10^3/uL (0.2-0.9); Monocytes % 5.1 %; Neutrophils % 68.1 %; Nucleated Red Blood Cells % 0 %; Platelet Count 230 10^3/cmm (130-400); Red Blood Count 4.56 10^6/uL (4.1-5.3); Red Cell Distribution Width 13.3 % (12.1-15.1); White Blood Count 11.7 10^3/uL (4.0-10.0)
[2020-04-11 12:30] LABS: Partial Thromboplastin Time 30.3 SECONDS (23.9-36.7)
[2020-04-11 12:34] LABS: Alanine Aminotransferase 16 U/L (0-33); Albumin Level 4.8 g/dL (3.5-5.2); Alkaline Phosphatase 55 IU/L (35-105); Anion Gap 18.8 (5-19); Aspartate Amino Transferase 9 U/L (0-32); Blood Urea Nitrogen 7 mg/dL (6-20); Calcium 10.5 mg/dL (8.5-10.5); Carbon Dioxide 17 mmol/L (22-29); Chloride 105 mmol/L (98-107); Globulin 2.5 g/dL (1.3-4.6); Glomerular Filtration Rate 91.8 mL/min (90-130); Glucose 77 mg/dL (65-115); Osmolality Calculated 279 mOsm/kg (285-295); Potassium 3.8 mmol/L (3.5-5.1); Sodium 137 mmol/L (136-145); Total Bilirubin 0.4 mg/dL (0.15-1.2); Total Protein 7.3 g/dL (6.6-8.7)
[2020-04-11] MEDS: ketorolac 30 mg/mL INJ IVP (13:03)
[2020-04-11 13:59] VITALS: BP 99/55; PULSE 70; RESP 17; O2SAT 98
[2020-04-11 15:27] LABS: Glucose Point of Care 94 mg/dL (70-110)
== END 2020-04-11 14:01 | disposition home or self-care (01) ==
PROVIDERS: Emergency Provider Emergency Medicine; PCP Nurse Practitioner
DX: R41.82 Altered mental status, unspecified (principal); Z79.02 Long term (current) use of antithrombotics/antiplatelets; Z79.82 Long term (current) use of aspirin; I48.91 Unspecified atrial fibrillation; Z86.73 Personal history of transient ischemic attack (TIA), and cerebral infarction without residual deficits
CPT/HCPCS: 12345; 36416; 70450; 80053; 82962; 85025; 85610; 85730; 93005; 96374; 96375; 99282; 99284; J1885

== ENCOUNTER → 2021-08-12 13:35 | Outpatient (BNVA) | payer OTHER, SELFPAY | PROVIDERS: PCP Nurse Practitioner; Visit Provider Nurse Practitioner Family | DX: Z20.822 Contact with and (suspected) exposure to COVID-19 (principal); J06.9 Acute upper respiratory infection, unspecified | CPT/HCPCS: 87635 ==

== ENCOUNTER → 2021-11-16 14:33 | Outpatient (BNVA) | payer OTHER, SELFPAY | PROVIDERS: PCP Nurse Practitioner; Visit Provider Nurse Practitioner Family | DX: Z20.822 Contact with and (suspected) exposure to COVID-19 (principal); J02.9 Acute pharyngitis, unspecified | CPT/HCPCS: 87071; 87635; 87880 ==

== ENCOUNTER → 2021-12-09 11:18 | Outpatient (BNVA) | payer OTHER, SELFPAY | PROVIDERS: PCP Nurse Practitioner; Visit Provider Nurse Practitioner Family | DX: Z20.822 Contact with and (suspected) exposure to COVID-19 (principal) | CPT/HCPCS: 87635 ==

== ENCOUNTER 2022-11-26 08:22 | Outpatient (CLI) | payer OTHER, SELFPAY ==
--- NOTE | 2022-11-26 08:42 | MM_ITS ---
WS: [id number] DIAGNOSTIC BILATERAL DIGITAL BREAST TOMOSYNTHESIS MAMMOGRAPHY WITH CAD LEFT breast ultrasound, limited HISTORY: LT BREAST MASS COMPARISON: 06/13/2019 and 05/10/2018 TECHNIQUE: Bilateral craniocaudad, mediolateral oblique, and mediolateral views are submitted with to mosynthesis and SM. Spot compression LEFT CC and MLO. Computer aided detection utilized. Breast composition: The breasts are heterogeneously dense, which may obscure small masses. Partially obscured lobulated mass in the upper-outer quadrant LEFT breast posteriorly measures at [address] 12 x 6 mm. This corresponds to the palpable abnormality. No additional abnormalities. LEFT breast ultrasound, limited. Dumbbell shaped hypoechoic mass with mild increased vascularity in the LEFT breast at 2:00, 5 cm from the nipple. Mass measures 1.2 x 0.7 x 0.8 cm. MM/[place] [id number] IMPRESSION: BI-RADS: 4-Suspicious Finding-Biopsy Should Be Considered FOLLOW UP: Biopsy Recommended Ultrasound-guided biopsy recommended mass upper outer quadrant LEFT breast onesimo esponding to the palpable abnormality. Notified [facility] at 11/26/2022 10:40 AM.
== END 2022-11-26 08:23 | disposition home or self-care (01) ==
DX: N63.21 Unspecified lump in the left breast, upper outer quadrant (principal)
CPT/HCPCS: 76642; 77062; G0279

== ENCOUNTER 2022-12-23 08:10 | Outpatient (CLI) | payer MEDICAID, SELFPAY ==
--- NOTE | 2022-12-23 | US_ITS ---
WS: [id number] ULTRASOUND-GUIDED LEFT BREAST BIOPSY HISTORY: Mass at 2:00. COMPARISON: None. Procedure, risks and complications are explained to the patient. Medications are reviewed. Consent is obtained. The mass in the LEFT breast is localized with ultrasound. Mass localizes to 2:00, 5 cm from the nippl e. Skin is cleansed with ChloraPrep and anesthetized with 1% buffered lidocaine. Small dermatome is m faustino. Under sterile conditions mass is biopsied with a 14-gauge Achieve needle. Multiple core biopsies are performed. Material placed in formalin and sent to pathology for review. No complications encoun tered. Breast tissue marker (Astrapi ultrasound enhanced ribbon): None. Patient left the radiology suite with no complications. Patient is instructed to return to [facility] or [facility] with any concerns. US/[place] [id number] IMPRESSION: 1. Uncomplicated core needle biopsy LEFT breast mass at 2:00. PATHOLOGY: Fibroadenoma. No malignancy. RECOMMENDATION: Return to annual screening mammography. Screening mammography J anuary 2023.
== END 2022-12-23 08:11 | disposition home or self-care (01) ==
PROVIDERS: Visit Provider Family Medicine
DX: N63.25 Unspecified lump in the left breast, overlapping quadrants (principal); D24.2 Benign neoplasm of left breast
CPT/HCPCS: 19083; 88305

== ENCOUNTER 2023-12-09 09:01 | Outpatient (CLI) | payer OTHER, SELFPAY ==
--- NOTE | 2023-12-09 09:02 | MM_ITS ---
WS: [id number] BILATERAL SCREENING DIGITAL TOMOSYNTHESIS MAMMOGRAM WITH CAD HISTORY: SCREENING COMPARISON: 11/26/2022 and 06/13/2019 Bilateral CC and MLO views with tomosynthesis and synthetic mammography submitted. Computer aided det ection analyzed. Breast composition: The breasts are heterogeneously dense, which may obscure small masses. No suspici ous masses, microcalcifications or architectural distortion. Previously biopsied mass containing a bi opsy clip is noted in the upper outer quadrant of the RIGHT breast measures 11 mm and unchanged. No n ew suspicious masses or calcifications. IMPRESSION: MM/[place] [id number] BI-RADS: 2-Benign FOLLOW UP: 1 Year Follow-up
== END 2023-12-09 09:02 | disposition home or self-care (01) ==
PROVIDERS: Visit Provider Family Medicine
DX: Z12.31 Encounter for screening mammogram for malignant neoplasm of breast (principal); R92.333 Mammographic heterogeneous density, bilateral breasts
CPT/HCPCS: 77063; 77067